=== PATIENT | female | born 1980 ===

== ENCOUNTER 2017-06-13 13:43 | Inpatient (IN) | payer BC, OTHER ==
[2017-06-13 13:43] VITALS: BMI 33.5
[2017-06-13] MEDS ORDERED: Sodium Chloride 0.9% 1,000 ML IV STA (14:11)
--- NOTE | 2017-06-13 14:17 | ED PDOC ---
HPI: Abdomen Time Seen by Provider: 06/13/17 14:15 Chief Complaint (Nursing): Abdominal Pain Chief Complaint (Provider): llq pain History Per: Patient (36 y/o female here LMP 718 h/o Bilateral tubal ligation 2012 with llq pain that began today morning associated with 3 episodes of diarrhea. Denies any fevers/chills. Notes nausea. h/o 2 cxn in past. Denies any vaginal bleeding. ) Past Medical History Reviewed: Historical Data, Nursing Documentation, Vital Signs Vital Signs: Last Vital Signs Temp 98 F 06/13/17 13:45 Pulse 96 H 06/13/17 13:45 Resp 18 06/13/17 13:45 BP 135/63 06/13/17 13:45 Pulse Ox 100 06/13/17 19:40 - Surgical History Surgical History: (x2) - Family History Family History: States: Diabetes, Hypertension - Home Medications Home Medications: Ambulatory Orders Medication Instructions Recorded Cyclobenzaprine [Flexeril] 5 mg PO Q8 PRN #15 tab 08/13/16 Naproxen [Naprosyn] 1 tab PO BID PRN #60 tab 08/13/16 - Allergies Allergies/Adverse Reactions: Allergies Allergy/AdvReac Type Severity Reaction Status Date / Time zolpidem tartrate Allergy SWELLING Verified 08/13/16 16:23 [From Dada] Review of Systems ROS Statement: Except As Marked, All Systems Reviewed And Found Negative Physical Exam - Reviewed Nursing Documentation Reviewed: Yes Vital Signs Reviewed: Yes - Physical Exam Appears: Positive for: Well, Non-toxic, No Acute Distress Head Exam: Positive for: ATRAUMATIC, NORMAL INSPECTION, NORMOCEPHALIC Skin: Positive for: Normal Color, Warm, DRY Eye Exam: Positive for: EOMI, Normal appearance, PERRL ENT: Positive for: Normal ENT Inspection Neck: Positive for: Normal, Painless ROM Cardiovascular/Chest: Positive for: Regular Rate, Rhythm Respiratory: Positive for: CNT, Normal Breath Sounds Gastrointestinal/Abdominal: Positive for: Normal Exam, Bowel Sounds, Soft, Tenderness (llq) Back: Positive for: Normal Inspection Extremity: Positive for: Normal ROM Neurologic/Psych: Positive for: Alert, Oriented - Laboratory Results Result Diagrams: 06/13/17 14:45 06/13/17 14:45 - ECG O2 Sat by Pulse Oximetry: 100 - CT Scan/US US renal Other Rad Studies (CT/US): Read By Radiologist, Radiology Report Reviewed (see course treatment note for findings) US transvaginal Other Rad Studies (CT/US): Read By Radiologist, Radiology Report Reviewed (see course treatment note for findings) - Progress ED Course And Treament: US pelvis transvaginal: NO IUP; free fluid in cul de sac debris like; no obvious gestational mass in adnexa 16:55 US transvaginal read and reviewed by radiologist FINDINGS: UTERUS: Measures 11.4 x 4.4 x 5.0 cm. Normal in size and appearance. No myometrial lesions appreciated. There is no gestational sac identified within the endometrial cavity either however. ENDOMETRIUM: Measures 4.0 mm in diameter. No gestational sac is identified within the endometrial cavity. CERVIX: Nabothian cysts are identified in the cervix. RIGHT OVARY: Measures 2.3 x 2.3 x 2.6 cm. No solid mass. Normal flow. Trace fluid is seen the right index compartment. LEFT OVARY: Measures 3 1 x 2.0 x 2.7 cm. Intrinsically, the left ovary appears grossly unremarkable with 1 or 2 small follicles seen within the ovary. Posterior to the left ovary, however, there is a complex soft tissue finding measuring 6.1 x 2.9 x 5.4 cm which is partially obscured by bowel. Prominent fluid seen the cul- de-sac which is debris-filled. Ectopic gestation of the the left adnexal compartment is not excluded and further clinical correlation is advised. FREE FLUID: Relatively prominent fluid collections appreciate the cul de sac measure approximately 8.1 x 4.2 x 5.8 cm abdomen amount. It is not completely visualized in any in one plane. OTHER FINDINGS: None. IMPRESSION: 1. No intrauterine gestation identified within the uterus with the right ovary appearing unremarkable grossly. 2. Prominent sulci fluid is seen with inhomogeneous soft tissue lesion seen posterior to the left ovary measures 6.1 cm. Center possible ectopic gestation though one is not clearly identified. Further clinical correlation is advised. 17:28 US renal read and reviewed by radiologist FINDINGS: RIGHT KIDNEY: Measures: 10.2 x 4.2 x 3.7 cm. No visualized obstructing calculus, hydronephrosis, or renal cyst. LEFT KIDNEY: Measures: 10.8 x 4.1 x 4.4 cm. No visualized obstructing calculus, hydronephrosis, or renal cyst. OTHER FINDINGS: Under distended urinary bladder precludes adequate evaluation. IMPRESSION: Unremarkable renal sonogram as above. Scribe Attestation: Documented by Lien Diamond, acting as a scribe for Herlinda London PA-C. Provider Scribe Attestation: All medical record entries made by the Scribe were at my direction and personally dictated by me. I have reviewed the chart and agree that the record accurately reflects my personal performance of the history, physical exam, medical decision making, and the department course for this patient. I have also personally directed, reviewed, and agree with the discharge instructions and disposition. D/W DR. CRUZ. WILL ADMIT TO HIS SERVICE FOR OR IN AM. Disposition - Clinical Impression Clinical Impression: Abdominal pain during - Patient ED Disposition Is Patient to be Admitted: Yes - Disposition Disposition Time: 18:00 Condition: FAIR
[2017-06-13 14:35] LABS: SQUAMOUS EPITHIAL 1 /hpf (0-5); URINE BACTERIA RARE (<OCC); URINE BILIRUBIN NEGATIVE (NEGATIVE); URINE BLOOD NEGATIVE (NEGATIVE); URINE CLARITY CLEAR (Clear); URINE COLOR YELLOW (YELLOW); URINE GLUCOSE (UA) NEG (Normal); URINE LEUKOCYTE ESTERASE NEG Leu/uL (Negative); URINE NITRATE NEGATIVE (NEGATIVE); URINE PROTEIN NEGATIVE (NEGATIVE); URINE UROBILINOGEN 0.2-1.0 mg/dL (0.2-1.0)
[2017-06-13 15:00] LABS: BASO % 0.2 % (0.0-2.0); EOS # 0.1 K/uL (0.0-0.7); EOS % 0.4 % (0.0-4.0); HEMOGLOBIN 12.3 g/dL (12.0-16.0); LYMPH # 1.7 K/uL (1.0-4.3); LYMPH % 13.6 % (20.0-40.0); MEAN CELL VOLUME 89.3 fl (81.0-99.0); MEAN CORPUSCULAR HEMOGLOBIN 29.6 pg (27.0-31.0); MEAN CORPUSCULAR HGB CONC 33.2 g/dL (33.0-37.0); MEAN PLATELET VOLUME 10.9 fl (7.2-11.7); MONO # 0.5 K/uL (0.0-0.8); NEUT % 81.8 % (50.0-75.0); RBC 4.16 Mil/uL (3.80-5.20); RED CELL DISTRIBUTION WIDTH 12.7 % (11.5-14.5); WHITE BLOOD COUNT 12.2 K/uL (4.8-10.8)
[2017-06-13 15:13] LABS: ALB/GLOB RATIO 1.5 (1.0-2.1); ALBUMIN 4.3 g/dL (3.5-5.0); ALT/SGPT 29 U/L (9-52); AST/SGOT 17 U/L (14-36); BLOOD UREA NITROGEN 7 mg/dl (7-17); GFR AFRICAN-AMERICAN > 60; GFR NON-AFRICAN AMERICAN > 60; LIPASE 71 U/L (23-300)
--- NOTE | 2017-06-13 17:19 | US ---
HISTORY: llq pain COMPARISON: None available. TECHNIQUE: Transvaginal pelvic ultrasound was performed for evaluation of left lower quadrant abdominal pain/pelvic pain. Of the there is also an elevated quantitative beta HCG level. FINDINGS: UTERUS: Measures 11.4 x 4.4 x 5.0 cm. Normal in size and appearance. No myometrial lesions appreciated. There is no gestational sac identified within the endometrial cavity either however. ENDOMETRIUM: Measures 4.0 mm in diameter. No gestational sac is identified within the endometrial cavity. CERVIX: Nabothian cysts are identified in the cervix. RIGHT OVARY: Measures 2.3 x 2.3 x 2.6 cm. No solid mass. Normal flow. Trace fluid is seen the right index compartment. LEFT OVARY: Measures 3 1 x 2.0 x 2.7 cm. Intrinsically, the left ovary appears grossly unremarkable with 1 or 2 small follicles seen within the ovary. Posterior to the left ovary, however, there is a complex soft tissue finding measuring 6.1 x 2.9 x 5.4 cm which is partially obscured by bowel. Prominent fluid seen the cul-de-sac which is debris-filled. Ectopic gestation of the the left adnexal compartment is not excluded and further clinical correlation is advised. FREE FLUID: Relatively prominent fluid collections appreciate the cul de sac measure approximately 8.1 x 4.2 x 5.8 cm abdomen amount. It is not completely visualized in any in one plane. OTHER FINDINGS: None. IMPRESSION: 1. No intrauterine gestation identified within the uterus with the right ovary appearing unremarkable grossly. 2. Prominent sulci fluid is seen with inhomogeneous soft tissue lesion seen posterior to the left ovary measures 6.1 cm. Center possible ectopic gestation though one is not clearly identified. Further clinical correlation is advised. Findings discussed with JESSA London 06/13/2017 16:55 p.m..
--- NOTE | 2017-06-13 17:30 | US ---
PROCEDURE: Ultrasound of the Kidneys HISTORY: left sided pain r/o hydronephrosis COMPARISON: None available. TECHNIQUE: Sonogram of the kidneys. FINDINGS: RIGHT KIDNEY: Measures: 10.2 x 4.2 x 3.7 cm. No visualized obstructing calculus, hydronephrosis, or renal cyst. LEFT KIDNEY: Measures: 10.8 x 4.1 x 4.4 cm. No visualized obstructing calculus, hydronephrosis, or renal cyst. OTHER FINDINGS: Under distended urinary bladder precludes adequate evaluation. IMPRESSION: Unremarkable renal sonogram as above.
[2017-06-13 20:48] LABS: PROTHROMBIN TIME 11.8 Seconds (9.8-13.1)
[2017-06-13] MEDS: Lactated Ringer's 1,000 ML IV SCH (22:18)
[2017-06-14] MEDS: Lactated Ringer's 1,000 ML IV SCH ×3 (06:00→21:12)
[2017-06-14 07:15] LABS: BASO % 0.3 % (0.0-2.0); EOS # 0.1 K/uL (0.0-0.7); EOS % 1.8 % (0.0-4.0); HEMOGLOBIN 10.7 g/dL (12.0-16.0); LYMPH % 32.8 % (20.0-40.0); MEAN CELL VOLUME 89.7 fl (81.0-99.0); MEAN CORPUSCULAR HEMOGLOBIN 30.1 pg (27.0-31.0); MEAN CORPUSCULAR HGB CONC 33.6 g/dL (33.0-37.0); MEAN PLATELET VOLUME 10.4 fl (7.2-11.7); MONO # 0.6 K/uL (0.0-0.8); MONO % 9.9 % (0.0-10.0); NEUT # 3.4 K/uL (1.8-7.0); NEUT % 55.2 % (50.0-75.0); RBC 3.57 Mil/uL (3.80-5.20); WHITE BLOOD COUNT 6.2 K/uL (4.8-10.8)
[2017-06-14] MEDS ORDERED: Lactated Ringer's 1,000 ML IV ONE ×2 (07:30→09:15)
[2017-06-14] MEDS ORDERED: Midazolam 2 MG/2 ML VIAL ONE (07:45)
[2017-06-14] MEDS ORDERED: Propofol 10 mg/ml Inj (20 ML) ONE (07:45)
[2017-06-14] MEDS ORDERED: Rocuronium 10 mg/ml (5 ml) ONE (07:46)
[2017-06-14] MEDS ORDERED: Dexamethasone 4 mg/1 ml ONE (08:15)
[2017-06-14] MEDS ORDERED: Lactated Ringer's 1,000 ML IV SCH (08:21)
[2017-06-14] MEDS ORDERED: Neostigmine Methylsulfate 2 MG/2 ML ML IV ONE (08:29)
[2017-06-14] MEDS ORDERED: Neostigmine Methylsulfate 3mg/3ml Syringe IV ONE (08:29)
[2017-06-14] MEDS: HYDROmorphone 0.5 mg/0.5 ml ISec IVP PRN ×5 (11:20→21:04)
[2017-06-14 11:53] LABS: BASO % 0.2 % (0.0-2.0); EOS % 0.2 % (0.0-4.0); HEMOGLOBIN 10.5 g/dL (12.0-16.0); LYMPH # 1.2 K/uL (1.0-4.3); LYMPH % 9.5 % (20.0-40.0); MEAN CELL VOLUME 91.1 fl (81.0-99.0); MEAN CORPUSCULAR HEMOGLOBIN 29.1 pg (27.0-31.0); MEAN CORPUSCULAR HGB CONC 31.9 g/dL (33.0-37.0); MEAN PLATELET VOLUME 10.9 fl (7.2-11.7); MONO # 0.2 K/uL (0.0-0.8); MONO % 1.9 % (0.0-10.0); NEUT # 11.2 K/uL (1.8-7.0); NEUT % 88.2 % (50.0-75.0); NRBC % 0.1 % (0.0-0.0); PLATELET COUNT 201 K/uL (130-400); RED CELL DISTRIBUTION WIDTH 13.2 % (11.5-14.5); WHITE BLOOD COUNT 12.7 K/uL (4.8-10.8)
[2017-06-14 12:49] LABS: LYMPHOCYTE 12 % (20-50); MONOCYTE 1 % (0-10); NEUTROPHIL 87 % (42-75); PLATELET ESTIMATE NORMAL (NORMAL); TOTAL CELLS COUNTED 100
[2017-06-14 12:50] LABS: HYPOCHROMIC SLIGHT
--- NOTE | 2017-06-14 15:58 | PCM.SURG1 ---
Surgeon's Initial Post Op Note - Surgeon's Notes Surgeon: Dr. Grewal [employer] Technician: Jennifer Tidwell PGY2, [facility] Type of Anesthesia: General Endo Pre-Operative Diagnosis: Ectopic Operative Findings: Extensive adhesions, ectopic , hemoperitonium Post-Operative Diagnosis: Same Operation Performed: laparoscopic converted to laparotomy Left salphingo- oopherectomy, lysis of adhesion Specimen/Specimens Removed: Left falopean tube and ovary Estimated Blood Loss: EBL {In ML}: 150 Blood Products Given: N/A Drains Used: No Drains Post-Op Condition: Fair Date of Surgery/Procedure: 06/14/17 Time of Surgery/Procedure: 12:00
[2017-06-15] MEDS: HYDROmorphone 0.5 mg/0.5 ml ISec IVP PRN (04:06)
[2017-06-15] MEDS: Lactated Ringer's 1,000 ML IV SCH ×2 (06:12→22:43)
--- NOTE | 2017-06-15 06:43 | CP.PCM.PN ---
Subjective - Date & Time of Evaluation Date of Evaluation: 06/15/17 Time of Evaluation: 06:41 - Subjective Subjective: Note for Dr. Toney Pt s&e. Pt underwent laparoscopic coverted to open removal of L ovarian tube and ovary. Pt tolerated it well. Denies F/C/V/D/CP/SOB/dizziness/weakness/BANKS. Pain controlled. Hay had 1L output. NPO. + amb. - BM Objective - Vital Signs/Intake and Output Vital Signs (last 24 hours): Temp Pulse Resp BP Pulse Ox 98.6 F 81 16 113/59 L 100 06/15/17 02:48 06/15/17 02:48 06/15/17 02:48 06/15/17 02:48 06/15/17 02:48 Intake and Output: 06/14/17 06/15/17 18:59 06:59 Output Total 1200 Balance -1200 - Medications Medications: Current Medications Acetaminophen (Tylenol 325mg Tab) 650 mg PO Q6 PRN PRN Reason: Fever >100.4 F Hydromorphone HCl (Dilaudid) 0.5 mg IVP Q4 PRN PRN Reason: Pain, moderate (4-7) Last Admin: 06/15/17 04:06 Dose: 0.5 mg Lactated Ringer's (Lactated Ringer's) 1,000 mls @ 125 mls/hr IV .Q8H EZEQUIEL Last Admin: 06/15/17 06:12 Dose: 125 mls/hr Ketorolac Tromethamine (Toradol) 30 mg IVP Q6 PRN PRN Reason: Pain, severe (8-10) Last Admin: 06/14/17 16:05 Dose: 30 mg Ondansetron HCl (Zofran Inj) 4 mg IVP Q4 PRN PRN Reason: Nausea/Vomiting Last Admin: 06/14/17 21:09 Dose: 4 mg Oxycodone/Acetaminophen (Percocet 5/325 Mg Tab) 2 tab PO Q4 PRN PRN Reason: Pain, moderate (4-7) Stop: 06/17/17 18:00 - Labs Labs: PT 11.8 Seconds (9.8-13.1) 06/13/17 20:19 INR 1.0 (0.9-1.2) 06/13/17 20:19 APTT 29.0 Seconds (25.6-37.1) 06/13/17 20:19 - Constitutional Appears: No Acute Distress - Head Exam Head Exam: ATRAUMATIC, NORMAL INSPECTION, NORMOCEPHALIC - Eye Exam Eye Exam: EOMI, Normal appearance, PERRL Pupil Exam: NORMAL ACCOMODATION, PERRL - Neck Exam Neck Exam: Full ROM, Normal Inspection. absent: Lymphadenopathy - Respiratory Exam Respiratory Exam: NORMAL BREATHING PATTERN - GI/Abdominal Exam GI & Abdominal Exam: Soft, Tenderness, Normal Bowel Sounds. absent: Distended, Rigid Additional comments: Incision C/D/I. Dressing C/D/I - Exam Exam: NORMAL INSPECTION Additional comments: Hya in place - Extremities Exam Extremities Exam: Full ROM, Normal Capillary Refill, Normal Inspection. absent : Joint Swelling, Pedal Edema - Back Exam Back Exam: NORMAL INSPECTION - Neurological Exam Neurological Exam: Alert, Awake, CN II-XII Intact, Normal Gait, Oriented x3 - Psychiatric Exam Psychiatric exam: Normal Affect, Normal Mood - Skin Skin Exam: Dry, Intact, Normal Color, Warm Assessment and Plan - Assessment and Plan (Free Text) Assessment: POD 1 s/p ex lap L salphingoophrectomy -f/u labs -DC hay -Advance diet -IS -Ambulation -Pain/nausea control
[2017-06-15 07:31] LABS: BASO % 0.3 % (0.0-2.0); EOS % 0.2 % (0.0-4.0); HEMOGLOBIN 8.9 g/dL (12.0-16.0); MEAN CELL VOLUME 89.6 fl (81.0-99.0); MEAN CORPUSCULAR HEMOGLOBIN 29.8 pg (27.0-31.0); MEAN CORPUSCULAR HGB CONC 33.2 g/dL (33.0-37.0); MEAN PLATELET VOLUME 10.2 fl (7.2-11.7); MONO # 0.8 K/uL (0.0-0.8); MONO % 8.8 % (0.0-10.0); NEUT # 6.7 K/uL (1.8-7.0); NEUT % 69.7 % (50.0-75.0); RBC 2.99 Mil/uL (3.80-5.20); RED CELL DISTRIBUTION WIDTH 12.8 % (11.5-14.5); WHITE BLOOD COUNT 9.6 K/uL (4.8-10.8)
--- NOTE | 2017-06-15 08:16 | CP.PCM.PN ---
Subjective - Date & Time of Evaluation Date of Evaluation: 06/15/17 Time of Evaluation: 08:13 - Subjective Subjective: no complaints today Objective - Vital Signs/Intake and Output Vital Signs (last 24 hours): Temp Pulse Resp BP Pulse Ox 98.4 F 89 18 106/63 99 06/15/17 07:40 06/15/17 07:40 06/15/17 07:40 06/15/17 07:40 06/15/17 07:40 Intake and Output: 06/15/17 06/15/17 06:59 18:59 Output Total 1200 Balance -1200 - Medications Medications: Current Medications Acetaminophen (Tylenol 325mg Tab) 650 mg PO Q6 PRN PRN Reason: Fever >100.4 F Hydromorphone HCl (Dilaudid) 0.5 mg IVP Q4 PRN PRN Reason: Pain, moderate (4-7) Last Admin: 06/15/17 04:06 Dose: 0.5 mg Lactated Ringer's (Lactated Ringer's) 1,000 mls @ 125 mls/hr IV .Q8H EZEQUIEL Last Admin: 06/15/17 06:12 Dose: 125 mls/hr Ketorolac Tromethamine (Toradol) 30 mg IVP Q6 PRN PRN Reason: Pain, severe (8-10) Last Admin: 06/14/17 16:05 Dose: 30 mg Ondansetron HCl (Zofran Inj) 4 mg IVP Q4 PRN PRN Reason: Nausea/Vomiting Last Admin: 06/14/17 21:09 Dose: 4 mg Oxycodone/Acetaminophen (Percocet 5/325 Mg Tab) 2 tab PO Q4 PRN PRN Reason: Pain, moderate (4-7) Stop: 06/17/17 18:00 - Labs Labs: 06/15/17 07:20 PT 11.8 Seconds (9.8-13.1) 06/13/17 20:19 INR 1.0 (0.9-1.2) 06/13/17 20:19 APTT 29.0 Seconds (25.6-37.1) 06/13/17 20:19 - GI/Abdominal Exam Additional comments: v.s stable afebrile lungs clear abdomen soft dressing clean Assessment and Plan - Assessment and Plan (Free Text) Assessment: stable pod1 s/p laparotomy,laparoscopy Plan: continue present care dc hay oob with assistance advance dit as tolerated
[2017-06-15] MEDS: Oxycodone/Acetaminophen 5/325 mg Tab PO PRN (22:35)
--- NOTE | 2017-06-16 08:49 | CP.PCM.PN ---
Subjective - Date & Time of Evaluation Date of Evaluation: 06/16/17 Time of Evaluation: 08:44 - Subjective Subjective: no ccomplaints today Objective - Vital Signs/Intake and Output Vital Signs (last 24 hours): Temp Pulse Resp BP Pulse Ox 98.5 F 82 18 95/62 L 99 06/16/17 07:27 06/16/17 07:27 06/16/17 07:27 06/16/17 07:27 06/16/17 07:27 - Medications Medications: Current Medications Acetaminophen (Tylenol 325mg Tab) 650 mg PO Q6 PRN PRN Reason: Fever >100.4 F Acetaminophen (Tylenol 325mg Tab) 650 mg PO Q4 PRN PRN Reason: Pain, moderate (4-7) Hydromorphone HCl (Dilaudid) 0.5 mg IVP Q4 PRN PRN Reason: Pain, moderate (4-7) Last Admin: 06/15/17 04:06 Dose: 0.5 mg Lactated Ringer's (Lactated Ringer's) 1,000 mls @ 125 mls/hr IV .Q8H EZEQUEIL Last Admin: 06/15/17 22:43 Dose: Not Given Ketorolac Tromethamine (Toradol) 30 mg IVP Q6 PRN PRN Reason: Pain, severe (8-10) Last Admin: 06/15/17 16:33 Dose: 30 mg Ondansetron HCl (Zofran Inj) 4 mg IVP Q4 PRN PRN Reason: Nausea/Vomiting Last Admin: 06/14/17 21:09 Dose: 4 mg Oxycodone/Acetaminophen (Percocet 5/325 Mg Tab) 2 tab PO Q4 PRN PRN Reason: Pain, moderate (4-7) Stop: 06/17/17 18:00 Last Admin: 06/15/17 22:35 Dose: 2 tab - Labs Labs: 06/15/17 07:20 PT 11.8 Seconds (9.8-13.1) 06/13/17 20:19 INR 1.0 (0.9-1.2) 06/13/17 20:19 APTT 29.0 Seconds (25.6-37.1) 06/13/17 20:19 - Eye Exam Additional comments: v.s stable afebrile lungs clear incision healing well Assessment and Plan - Assessment and Plan (Free Text) Assessment: stable pod2 s/p laparotomy left salpingoophorectomy Plan: continue present care
[2017-06-16] MEDS: Oxycodone/Acetaminophen 5/325 mg Tab PO PRN ×2 (13:02→23:06)
[2017-06-17 00:40] VITALS: RESP 20
[2017-06-17 08:22] VITALS: PULSE 84; TEMP 98.4; O2SAT 100
[2017-06-17 09:27] VITALS: BP 110/70
[2017-06-17] MEDS: Lactated Ringer's 1,000 ML IV SCH (10:48)
--- NOTE | 2017-06-17 15:00 | CP.PCM.DIS ---
Provider - Provider Date of Admission: 06/14/17 16:08 Attending physician: Manoj Grewal MD Time Spent in preparation of Discharge (in minutes): 25 Hospital Course - Lab Results Lab Results: Most Recent Lab Values WBC 9.6 K/uL (4.8-10.8) 06/15/17 07:20 RBC 2.99 Mil/uL (3.80-5.20) L 06/15/17 07:20 Hgb 8.9 g/dL (12.0-16.0) L 06/15/17 07:20 Hct 26.7 % (34.0-47.0) L 06/15/17 07:20 MCV 89.6 fl (81.0-99.0) 06/15/17 07:20 MCH 29.8 pg (27.0-31.0) 06/15/17 07:20 MCHC 33.2 g/dL (33.0-37.0) 06/15/17 07:20 RDW 12.8 % (11.5-14.5) 06/15/17 07:20 Plt Count 189 K/uL (130-400) 06/15/17 07:20 MPV 10.2 fl (7.2-11.7) 06/15/17 07:20 Neut % (Auto) 69.7 % (50.0-75.0) 06/15/17 07:20 Lymph % (Auto) 21.0 % (20.0-40.0) 06/15/17 07:20 [place] % (Auto) 8.8 % (0.0-10.0) 06/15/17 07:20 Eos % (Auto) 0.2 % (0.0-4.0) 06/15/17 07:20 Baso % (Auto) 0.3 % (0.0-2.0) 06/15/17 07:20 Neut # 6.7 K/uL (1.8-7.0) 06/15/17 07:20 Lymph # 2.0 K/uL (1.0-4.3) 06/15/17 07:20 [place] # 0.8 K/uL (0.0-0.8) 06/15/17 07:20 Eos # 0.0 K/uL (0.0-0.7) 06/15/17 07:20 Baso # 0.0 K/uL (0.0-0.2) 06/15/17 07:20 Neutrophils % (Manual) 87 % (42-75) H 06/14/17 11:26 Lymphocytes % (Manual) 12 % (20-50) L 06/14/17 11:26 Monocytes % (Manual) 1 % (0-10) 06/14/17 11:26 Platelet Estimate Normal (NORMAL) 06/14/17 11:26 Hypochromasia (manual) Slight 06/14/17 11:26 PT 11.8 Seconds (9.8-13.1) 06/13/17 20:19 INR 1.0 (0.9-1.2) 06/13/17 20:19 APTT 29.0 Seconds (25.6-37.1) 06/13/17 20:19 Sodium 138 mmol/l (132-148) 06/13/17 14:45 Potassium 3.8 MMOL/L (3.6-5.0) 06/13/17 14:45 Chloride 104 mmol/L (98-107) 06/13/17 14:45 Carbon Dioxide 22 mmol/L (22-30) 06/13/17 14:45 Anion Gap 15 (10-20) 06/13/17 14:45 BUN 7 mg/dl (7-17) 06/13/17 14:45 Creatinine 0.6 mg/dL (0.7-1.2) L 06/13/17 14:45 Est GFR ( Amer) > 60 06/13/17 14:45 Est GFR (Non-Af Amer) > 60 06/13/17 14:45 Random Glucose 95 mg/dL (65-105) 06/13/17 14:45 Calcium 9.0 mg/dL (8.4-10.2) 06/13/17 14:45 Total Bilirubin 0.6 mg/dl (0.2-1.3) 06/13/17 14:45 AST 17 U/L (14-36) 06/13/17 14:45 ALT 29 U/L (9-52) 06/13/17 14:45 Alkaline Phosphatase 58 U/L (38-126) 06/13/17 14:45 Total Protein 7.2 G/DL (6.3-8.2) 06/13/17 14:45 Albumin 4.3 g/dL (3.5-5.0) 06/13/17 14:45 Globulin 2.8 gm/dL (2.2-3.9) 06/13/17 14:45 Albumin/Globulin Ratio 1.5 (1.0-2.1) 06/13/17 14:45 Lipase 71 U/L (23-300) 06/13/17 14:45 Beta HCG, Quant 55.64 mIU/mL 06/15/17 07:20 Urine Color Yellow (YELLOW) 06/13/17 14:15 Urine Clarity Clear (Clear) 06/13/17 14:15 Urine pH 6.0 (5.0-8.0) 06/13/17 14:15 Ur Specific [place] 1.014 (1.003-1.030) 06/13/17 14:15 Urine Protein Negative mg/dL (NEGATIVE) 06/13/17 14:15 Urine Glucose (UA) Neg mg/dL (Normal) 06/13/17 14:15 Urine Ketones Negative mg/dL (NEGATIVE) 06/13/17 14:15 Urine Blood Negative (NEGATIVE) 06/13/17 14:15 Urine Nitrate Negative (NEGATIVE) 06/13/17 14:15 Urine Bilirubin Negative (NEGATIVE) 06/13/17 14:15 Urine Urobilinogen 0.2-1.0 mg/dL (0.2-1.0) 06/13/17 14:15 Ur Leukocyte Esterase Neg Angel Luis/uL (Negative) 06/13/17 14:15 Urine RBC (Auto) 1 /hpf (0-3) 06/13/17 14:15 Urine Microscopic WBC 1 /hpf (0-5) 06/13/17 14:15 Ur Squamous Epith Cells 1 /hpf (0-5) 06/13/17 14:15 Urine Bacteria Rare (<OCC) 06/13/17 14:15 C.trachomatis RNA (TMA) Not detected (Not Detected) 06/13/17 16:30 N.gonorrhoeae RNA (TMA) Not detected (Not Detected) 06/13/17 16:30 Blood Type O POSITIVE 06/13/17 14:45 Antibody Screen Negative 06/13/17 14:45 BBK History Checked Patient has bt 06/13/17 14:45 - Hospital Course Hospital Course: uneventful - Date & Time of H&P Date of H&P: 06/14/17 Time of H&P: 08:05 Discharge Exam - Head Exam Head Exam: ATRAUMATIC, NORMAL INSPECTION, NORMOCEPHALIC Discharge Plan - Follow Up Plan Condition: FAIR Disposition: HOME/ ROUTINE Instructions: Ectopic (DC), Exploratory Laparotomy (DC), Salpingo- oophorectomy (DC), Salpingo-oophorectomy (GEN), Acute Abdominal Pain (DC), Acute Abdominal Pain (GEN) Additional Instructions: follow up with Dr Lobato in 1-2 wks no sexual activity for 1 month no heavy lifting for 1 month no bathing in 2 wks ok to take shower Referrals: Manoj Grewal MD [Staff Provider] -
--- NOTE | 2017-06-19 06:53 | OP ---
PROCEDURE DATE: 06/14/2017 PREOPERATIVE DIAGNOSES: Abnormal and severe pelvic pain. POSTOPERATIVE DIAGNOSES: Abnormal and severe pelvic pain. FINDINGS: Hemoperitoneum and massive pelvic and abdominal adhesions. Left tube and ovaries with bleeding and end of tube bleeding. SURGEON: Dr. Grewal. ASSISTANTS: Dr. Ly and JESSA Ackerman first officer. PROCEDURE: Diagnostic laparoscopy, exploratory laparotomy with left salpingo-oophorectomy, and extensive lysis of adhesions. ANESTHESIOLOGIST: Dr. Ojeda. ANESTHESIA: General. DESCRIPTION OF PROCEDURE: With the patient in the dorsal lithotomy position under general anesthesia, the patient was prepped and draped in the usual sterile manner. A straight catheter was used to empty the bladder, after which the anterior cervix was grasped and dilated, which HUMI uterine manipulator was put into place and moved to the abdomen where the abdomen was tented and inflated to about 4 L of CO2. After this was done, I visualized that there was massive pelvic adhesions and there was hemoperitoneum. After several trials, a decision was made to do laparotomy and drapes were changed and a decision was made; everything was ready. Dr. Ly was there and helped to prepare the patient for the surgery, Dr. Stapleton and first officer JESSA were also there. The patient is in the supine position, a Pfannenstiel incision was made and taken down to the fascia in layers. Fascia was incised and extended bilaterally. The peritoneum was grasped, incised and extended vertically. Upon entering the abdominopelvic cavity, there was found to be several severe pelvic adhesions of bowel and everything; the omentum adherent to the anterior wall and to the uterus. During this, had massive lysis of adhesions after which we were able to clear the area out and the left ovary and tubes were visualized and there was bleeding from the left tube. After this was done, the peritoneum was cleaned, and there was not much left of lysis of adhesions. Peritoneum was cleaned and a left salpingo-oophorectomy was done with ruptured tube and ovary were removed. The pelvic cavity was irrigated until clean. The hemostasis was maintained and the peritoneum was grasped and closed with 1 Vicryl. Muscle approximated with 1 Vicryl. Fascia closed with 1 Vicryl running interlocking stitch starting at each end and finished in the midline. The subcutaneous layer was closed with 2-0 plain and the skin was closed with surgical clips and juanpablo. Estimated blood loss was about approximately 500 mL. The patient was in satisfactory condition on her way to recovery room. Dr. Ly was present from the beginning of the surgery to the end of the surgery, to the last staple. After this was done, the patient was transported to the recovery room. Manoj Grewal MD
== END 2017-06-17 16:16 | disposition home or self-care (01) | DRG 777 ==
LOC: H.ER 13:43 → H.ERHOLD 18:40 → H.MEDSURG1 20:40 → OBSVTOIN 06-14 16:08
PROVIDERS: ADMIT Specialist; ATTEND Specialist
PROC: 0UT60ZZ Resection of Left Fallopian Tube, Open Approach (ICD-10-PCS; principal; 2017-06-14 07:45)
PROC: 0UT10ZZ Resection of Left Ovary, Open Approach (ICD-10-PCS; 2017-06-14 07:45)
DX: O00.90 Unspecified ectopic pregnancy without intrauterine pregnancy (principal); K66.1 Hemoperitoneum; K66.0 Peritoneal adhesions (postprocedural) (postinfection)